=== PATIENT | male | born 1995 | race Native Hawaiian/Other Pacific Islander ===

== ENCOUNTER 2021-08-27 13:53 | Emergency (ER) | payer OTHER ==
[~2021-08-27] VITALS: Ht 167.6 cm; Wt 68.0 kg
[2021-08-27] MEDS ORDERED: LEXAPRO10 MG PO (14:06)
[2021-08-27] MEDS ORDERED: TRAZ50TA36 PO (14:06)
[2021-08-27 15:07] VITALS: BP 122/82; TEMP 98.2
== END 2021-08-27 15:18 | disposition home or self-care (01) ==
LOC: ED 13:53
DX: K02.9 Dental caries, unspecified (principal)
CPT/HCPCS: 96372; 99283; J0696; J1885